=== PATIENT | female | born 1965 ===

== ENCOUNTER 2017-06-29 18:41 | Emergency (ER) | payer OTHER ==
[2017-06-29 19:01] VITALS: TEMP 98.5
[2017-06-29 19:22] LABS: BASO % 0.4 % (0.0-2.0); EOS # 0.1 K/uL (0.0-0.7); EOS % 1.2 % (0.0-4.0); HEMOGLOBIN 12.8 g/dL (12.0-16.0); LYMPH # 2.9 K/uL (1.0-4.3); LYMPH % 30.4 % (20.0-40.0); MEAN CELL VOLUME 90.4 fl (81.0-99.0); MEAN CORPUSCULAR HEMOGLOBIN 30.7 pg (27.0-31.0); MEAN PLATELET VOLUME 8.5 fl (7.2-11.7); MONO # 0.6 K/uL (0.0-0.8); MONO % 6.3 % (0.0-10.0); NEUT # 5.8 K/uL (1.8-7.0); NEUT % 61.7 % (50.0-75.0); RBC 4.17 Mil/uL (3.80-5.20); RED CELL DISTRIBUTION WIDTH 13.2 % (11.5-14.5); WHITE BLOOD COUNT 9.5 K/uL (4.8-10.8)
--- NOTE | 2017-06-29 19:23 | ED PDOC ---
HPI: Trauma/Fall - HPI History Per: Patient, Family (2 daughters) History/Exam Limitations: language barrier (polish) Onset/Duration Of Symptoms: Mins (30) Injury Occurred (Timing): Just Before Arrival Location Of Injury: Left: Head, Posterior: Head Posterior Full Body: 1 - Laceration: approx 2 inches Severity: Moderate Additional Complaint(s): Ms. Aguilar is a pleasant 52 yo lady who presents to the ED s/p fall. Per daughters, approximately 30 minutes before presenting to the ED, she was mopping and slipped, hitting the L parietal portion of her head against the coffee table. Daughter rushed to her when she heard the event. Mom was seen laying down, holding pressure to the wound. They shared of noting approximately 1-2 cups of blood. At the time, she was alert and responding. Family proceeded to take her into the car to transport to the ED. While transported, she was noted to slowly loose interaction. She was not noted to loose full consciousness. Currently shares of headaches, pressure like. PmedHx: migraines FamHx: Breast and brain cancer Soc: Denies: smoking, alcohol, illicit drugs. Surg: hysterectomy <Donnell Ng - Last Filed: 06/29/17 20:32> <Mira Linn - Last Filed: 06/29/17 22:51> - HPI Time Seen by Provider: 06/29/17 19:02 Chief Complaint (Nursing): Trauma Supervising Attending Note - Supervising Attending Note The Documented history was done by the: Physician Biology Adjunct Instructor, Attending Physician The documented physical exam was done by the: Physician Biology Adjunct Instructor, Attending Physician - Attestation: I have personally seen and examined this patient.: Yes I have fully participated in the care of the patient.: Yes I have reviewed all pertinent clinical information, including history, physical exam and plan: Yes <Mira Linn - Last Filed: 06/29/17 22:51> Past Medical History Vital Signs: Last Vital Signs Temp 98.5 F 06/29/17 18:58 Pulse 88 06/29/17 18:58 Resp 22 06/29/17 18:58 BP 107/44 L 06/29/17 18:58 Pulse Ox 99 06/29/17 19:21 - Medical History PMH: Migraine - Surgical History Other surgeries: hysterectomy - Family History Family History: States: Other - Living Arrangements Living Arrangements: With Family (daughter) - Social History Current smoker - smoking cessation education provided: No Alcohol: None Drugs: Denies <Donnell Ng - Last Filed: 06/29/17 20:32> Vital Signs: Last Vital Signs Temp 98.5 F 06/29/17 18:58 Pulse 77 06/29/17 21:07 Resp 12 06/29/17 21:07 BP 133/42 L 06/29/17 21:07 Pulse Ox 96 06/29/17 21:07 <Mira Linn Maida - Last Filed: 06/29/17 22:51> - Home Medications Home Medications: Ambulatory Orders Medication Instructions Recorded Acetaminophen/Butalbital/Caf 1 tab PO PRN PRN 06/29/17 [Fioricet] Acetaminophen/Butalbital/Caf 1 tab PO TID PRN #20 tab 06/29/17 [Fioricet] - Allergies Allergies/Adverse Reactions: Allergies Allergy/AdvReac Type Severity Reaction Status Date / Time No Known Allergies Allergy Verified 06/29/17 19:01 Review of Systems Neurological: Positive for: Headache <Donnell Ng Filed: 06/29/17 20:32> Physical Exam - Reviewed Vital Signs Reviewed: Yes - Physical Exam Appears: Positive for: No Acute Distress, Uncomfortable Head Exam: Negative for: NORMAL INSPECTION (approximately 2 inch x 2 mm laceration of L parietal region. ) Skin: Positive for: Normal Color, Warm, Dry Eye Exam: Positive for: Normal appearance, EOMI. Negative for: Nystagmus ENT: Positive for: Pharynx Is (moist), Hearing Is (present). Negative for: Sinus Pain/Drainage, Nasal Congestion Neck: Positive for: Normal, Painless ROM Cardiovascular/Chest: Positive for: Regular Rate, Rhythm, Chest Non Tender. Negative for: JVD, Murmur Respiratory: Positive for: Normal Breath Sounds. Negative for: Accessory Muscle Use, Wheezing Gastrointestinal/Abdominal: Positive for: Normal Exam, Bowel Sounds, Soft. Negative for: Tenderness Neurologic/Psych: Positive for: Alert, logistics planning manager II-XII, Oriented. Negative for: Aphasia <NgDonnell payton Filed: 06/29/17 20:32> - Laboratory Results Result Diagrams: 06/29/17 19:18 06/29/17 19:18 - ECG O2 Sat by Pulse Oximetry: 99 <Donnell Ng Filed: 06/29/17 20:32> - Laboratory Results Result Diagrams: 06/29/17 19:18 06/29/17 19:18 <Mira Linn Omar Last Filed: 06/29/17 22:51> Procedures - Time-Out Type of Procedure: laceration repair Correct Patient (with visual ID + MR# on ID Band): Yes Correct Procedure: Yes Correct Site Marked: Yes Physician Name: Donnell Ng MD - Laceration/Wound Repair Left Posterior Head Wound Length (cm): 4 Wound's Depth, Shape: superficial, linear Wound Explored: clean Irrigated w/ Saline (ccs): 250 Betadine Prep?: Yes Anesthesia: Lidocaine w/ Epi (2%) Wound Debrided: minimal Wound Repaired With: [place] (x 10) Wound Complexity: Simple <NgDonnell payton Filed: 06/29/17 20:32> Disposition - Patient ED Disposition Is Patient to be Admitted: No Discussed With Dr.: Mira Linn Comment: Wound has been closed with stables. Hemostasis achieved. Pt instructed to return in 48 hours for wound check. - Disposition Disposition: Routine/Home Disposition Time: 20:31 <Donnell Ng Filed: 06/29/17 20:32> Counseled Patient/Family Regarding: Studies Performed, Diagnosis, Need For Followup, Rx Given <Mira Linn Filed: 06/29/17 22:51> - Clinical Impression Clinical Impression: Concussion, Laceration of scalp - Disposition Condition: IMPROVED Additional Instructions: APPLY BACITRACIN OR NEOSPORIN TWICE A DAY RETURN IN 48 HOURS FOR WOUND CHECK CAMILO ARE REMOVED IN 10-14 DAYS REST AND DRINK PLENTY FLUIDS Prescriptions: Acetaminophen/Butalbital/Caf [Fioricet] 1 tab PO TID PRN #20 tab PRN Reason: Headache Instructions: Concussion (ED), Fall Prevention for Older Adults (ED), Staple Care (ED) Forms: [facility] (Lao) Print Language: [place]
[2017-06-29 19:30] LABS: PARTIAL THROMBOPLASTIN TIME 26.1 Seconds (25.6-37.1)
[2017-06-29 19:31] LABS: ALB/GLOB RATIO 1.4 (1.0-2.1); ALBUMIN 3.9 g/dL (3.5-5.0); ALT/SGPT 33 U/L (9-52); AST/SGOT 24 U/L (14-36); BLOOD UREA NITROGEN 12 mg/dl (7-17); CALCIUM 8.7 mg/dL (8.4-10.2); GFR AFRICAN-AMERICAN > 60; GFR NON-AFRICAN AMERICAN > 60
[2017-06-29] MEDS ORDERED: Povidone Iodine Topical 10% Sol ONE (19:46)
[2017-06-29] MEDS ORDERED: Lidocaine 2% w Epi 1:100,000 Inj IJ ONE (19:46)
[2017-06-29] MEDS ORDERED: Apap-Butalbital-Caffeine 325-50-40mg Tab PO STA (20:15)
[2017-06-29] MEDS ORDERED: Apap-Butalbital-Caffeine 325-50-40mg Tab ONE (20:35)
[2017-06-29] MEDS ORDERED: Sodium Chloride 0.9% 500 ML IV STA (20:52)
[2017-06-29 21:08] VITALS: BP 133/42; PULSE 77; RESP 12; O2SAT 96
--- NOTE | 2017-06-30 08:48 | CT ---
PROCEDURE: CT HEAD WITHOUT CONTRAST. HISTORY: head injury LOC dizzy COMPARISON: None available. TECHNIQUE: Axial computed tomography images were obtained through the head/brain without intravenous contrast. Radiation dose: Total exam DLP = 827.22 mGy-cm. This CT exam was performed using one or more of the following dose reduction techniques: Automated exposure control, adjustment of the mA and/or kV according to patient size, and/or use of iterative reconstruction technique. FINDINGS: HEMORRHAGE: No intracranial hemorrhage. BRAIN: No mass effect or edema. No atrophy or chronic microvascular ischemic changes. VENTRICLES: Unremarkable. No hydrocephalus. CALVARIUM: Unremarkable. PARANASAL SINUSES: Unremarkable as visualized. No significant inflammatory changes. MASTOID AIR CELLS: Unremarkable as visualized. No inflammatory changes. OTHER FINDINGS: None. IMPRESSION: Normal CT of the Head. No intracranial mass, hemorrhage or evidence of acute infarct. Preliminary interpretation of this examination was reported by [facility] at 7:39 p.m. on 06/29/2017. There is discordance of this report with the preliminary interpretation. There is no evidence of a meningioma on this examination peer
--- NOTE | 2017-06-30 11:12 | CARD ---
APPROVED REPORT EKG Measurement Heart [id number] <Conclusion> Normal sinus rhythm Normal ECG
== END 2017-06-29 21:37 | disposition home or self-care (01) ==
LOC: H.ER 18:41
DX: S01.01XA Laceration without foreign body of scalp, initial encounter (principal); S06.0X0A Concussion without loss of consciousness, initial encounter; Z90.710 Acquired absence of both cervix and uterus; W01.190A Fall on same level from slipping, tripping and stumbling with subsequent striking against furniture, initial encounter; Y93.E5 Activity, floor mopping and cleaning; Y92.9 Unspecified place or not applicable

== ENCOUNTER 2017-07-06 14:37 | Emergency (ER) | payer OTHER ==
[2017-07-06 14:44] VITALS: BP 126/78; PULSE 92; RESP 16; TEMP 97.6; O2SAT 100
--- NOTE | 2017-07-06 15:04 | ED PDOC ---
HPI: Wound Care - HPI Time Seen by Provider: 07/06/17 14:51 Chief Complaint (Nursing): Suture/Staple Removal Chief Complaint (Provider): Staple Removal History Per: Patient Exam Limitations: no limitations Additional History Per: Prior Records Additional Complaint(s): Nuha is a 52 year old female who presents to the emergency department for staple removal placed last week (June 29, 2017). PMD: Shay Campos Past Medical History Reviewed: Historical Data, Nursing Documentation, Vital Signs Vital Signs: Last Vital Signs Temp 97.6 F 07/06/17 14:43 Pulse 92 H 07/06/17 14:43 Resp 16 07/06/17 14:43 BP 126/78 07/06/17 14:43 Pulse Ox 100 07/06/17 14:43 - Medical History PMH: Migraine - Family History Family History: States: Unknown Family Hx - Home Medications Home Medications: Ambulatory Orders Medication Instructions Recorded Acetaminophen/Butalbital/Caf 1 tab PO PRN PRN 06/29/17 [Fioricet] Acetaminophen/Butalbital/Caf 1 tab PO TID PRN #20 tab 06/29/17 [Fioricet] - Allergies Allergies/Adverse Reactions: Allergies Allergy/AdvReac Type Severity Reaction Status Date / Time No Known Allergies Allergy Verified 06/29/17 19:01 Physical Exam - Reviewed Nursing Documentation Reviewed: Yes Vital Signs Reviewed: Yes - Physical Exam Appears: Positive for: Well, Non-toxic, No Acute Distress Head Exam: Positive for: NORMAL INSPECTION ((+): Well-healing of posterior scalp laceration noted, no erythema, no drainage) Skin: Positive for: Normal Color Eye Exam: Positive for: Normal appearance Neck: Positive for: Normal Respiratory: Negative for: Accessory Muscle Use, Respiratory Distress Extremity: Positive for: Normal ROM Neurologic/Psych: Positive for: Alert, Oriented - ECG O2 Sat by Pulse Oximetry: 100 (RA) Pulse Ox Interpretation: Normal Medical Decision Making Medical Decision Making: Time: 15:14 Staple Removal 10 sara were removed. No complications Upon provider evaluation patient is medically stable, and requires no further treatment in the ED at this time. Patient will be discharged. Counseling was provided and all questions were answered. There is agreement to discharge plan. Return if symptoms persist or worsen. Scribe Attestation: Documented by Timmy Vaca, acting as a scribe for Mel Valerio PA-C Provider Scribe Attestation: All medical record entries made by the Scribe were at my direction and personally dictated by me. I have reviewed the chart and agree that the record accurately reflects my personal performance of the history, physical exam, medical decision making, and the department course for this patient. I have also personally directed, reviewed, and agree with the discharge instructions and disposition. Disposition - Clinical Impression Clinical Impression: Removal of staple - Patient ED Disposition Is Patient to be Admitted: No - Disposition Disposition: Routine/Home Disposition Time: 15:22 Condition: STABLE Instructions: Stitches Removal (ED) Forms: [employer] (Stateless)
== END 2017-07-06 16:02 | disposition home or self-care (01) ==
LOC: H.ER 14:37
DX: Z48.02 Encounter for removal of sutures (principal)